=== PATIENT | female | born 1985 | race Caucasian/White ===

== ENCOUNTER → 2022-08-04 | Outpatient (CLI) | payer BC ==
[2022-08-04 17:42] LABS: BASOPHILS % (AUTO) 0 % (0-10); EOSINOPHILS # (AUTO) 0.1 10^3/uL (0.0-0.3); EOSINOPHILS % (AUTO) 2 % (0-10); HEMATOCRIT 31 % (35-52); HEMOGLOBIN 11.2 g/dL (11.5-16.0); LYMPHOCYTES % (AUTO) 26 % (12-44); MEAN CORPUSCULAR HEMOGLOBIN 34 pg (25-34); MEAN CORPUSCULAR HGB CONC 37 g/dL (32-36); MEAN CORPUSCULAR VOLUME 91 fL (80-99); MEAN PLATELET VOLUME 8.4 fL (9.0-12.2); MONOCYTES # (AUTO) 0.4 10^3/uL (0.0-1.0); MONOCYTES % (AUTO) 5 % (0-12); NEUTROPHILS # (AUTO) 5.3 10^3/uL (1.8-7.8); NEUTROPHILS % (AUTO) 67 % (42-75); PLATELET COUNT 309 10^3/uL (130-400); WHITE BLOOD COUNT 7.9 10^3/uL (4.3-11.0)
[2022-08-04 17:53] LABS: ALBUMIN 3.8 GM/DL (3.2-4.5)
[2022-08-04 17:54] LABS: CALCIUM 7.7 MG/DL (8.5-10.1)
[2022-08-04 17:56] LABS: TOTAL PROTEIN 6.2 GM/DL (6.4-8.2)
[2022-08-04 17:57] LABS: BILIRUBIN,TOTAL 0.8 MG/DL (0.1-1.0)
[2022-08-04 17:58] LABS: INR 0.9 (0.8-1.4)
[2022-08-04 17:59] LABS: CREATININE SERUM 0.71 MG/DL (0.60-1.30)
[2022-08-04 18:16] LABS: POTASSIUM 1.8 MMOL/L (3.6-5.0)
== END ==
LOC: LAB 17:27
PROVIDERS: ATTEND Nurse Practitioner Family
DX: I10 Essential (primary) hypertension (principal); E87.6 Hypokalemia
CPT/HCPCS: 36415; 80053; 85025; 85610

== ENCOUNTER → 2022-08-06 | Outpatient (CLI) | payer BC ==
[2022-08-06 15:46] LABS: BILIRUBIN,TOTAL 0.6 MG/DL (0.1-1.0); CALCIUM 7.4 MG/DL (8.5-10.1); CREATININE SERUM 0.69 MG/DL (0.60-1.30); POTASSIUM 2.1 MMOL/L (3.6-5.0); TOTAL PROTEIN 6.4 GM/DL (6.4-8.2)
[2022-08-06 15:47] LABS: ALBUMIN 3.9 GM/DL (3.2-4.5)
[2022-08-08 12:59] LABS: HEPATITIS C ANTIBODY C Non-Reactive (Non-Reactive)
== END ==
LOC: LAB FS 14:56
PROVIDERS: ATTEND Pediatrics
DX: E87.6 Hypokalemia (principal); R74.8 Abnormal levels of other serum enzymes
CPT/HCPCS: 36415; 80053; 80074

== ENCOUNTER → 2022-08-08 | Outpatient (CLI) | payer BC ==
[2022-08-08 13:11] LABS: ALBUMIN 4.1 GM/DL (3.2-4.5); BILIRUBIN,TOTAL 0.5 MG/DL (0.1-1.0); CALCIUM 7.8 MG/DL (8.5-10.1); CREATININE SERUM 0.79 MG/DL (0.60-1.30); TOTAL PROTEIN 6.5 GM/DL (6.4-8.2)
[2022-08-08 13:12] LABS: POTASSIUM 2.7 MMOL/L (3.6-5.0)
== END ==
LOC: LAB FS 12:27
PROVIDERS: ATTEND Pediatrics
DX: E87.6 Hypokalemia (principal)
CPT/HCPCS: 36415; 80053

== ENCOUNTER → 2023-02-11 | Outpatient (CLI) | payer BC | LOC: CARD 12:56 | PROVIDERS: ATTEND Internal Medicine Cardiovascular Disease | DX: I11.9 Hypertensive heart disease without heart failure (principal); I25.10 Atherosclerotic heart disease of native coronary artery without angina pectoris | CPT/HCPCS: 93306 ==

== ENCOUNTER → 2023-02-25 | Outpatient (CLI) | payer BC ==
[2023-02-25 14:57] VITALS: BP 135/94
--- NOTE | 2023-02-25 15:53 | Cardiology Stress Test Report ---
Stress Test Report Date of Procedure/Referring: Date of Procedure: Feb 25, 2023 PCP Octavia Richard MD Admitting Physician Admitting Physician: Attending Physician: Alia Horta MD Baseline Heart Rate: 96 Baseline Blood Pressure: Blood Pressure Systolic: 135 Blood Pressure Diastolic: 94 Baseline EKG: Baseline EKG: NSR Summary/Conclusion: Summary: In summary, the patient started exercising with a baseline heart rate, blood pressure and EKG mentioned above Patient was able to exercise for a total of 9 minutes on Sami protocol, METs 10.5 Maximum heart rate 166 Maximum blood pressure 183/92 Stress EKG, Minimal nondiagnostic changes Recovery EKG , Return to baseline Conclusion: 1. Good exercise tolerance for a total of 9 minutes on Sami protocol, 10.5 METs, achieving 90 percent of maximum expected heart rate 2. Minimal nondiagnostic EKG changes with exercise returned to baseline during recovery 3. No arrhythmia was noted Copy Copies To 1: OCTAVIA RICHARD MD, BASHAR J MD Feb 25, 2023 15:53
== END ==
LOC: CARD 14:41
PROVIDERS: ATTEND Internal Medicine Cardiovascular Disease
DX: R07.9 Chest pain, unspecified (principal); R00.2 Palpitations
CPT/HCPCS: 93017

== ENCOUNTER → 2023-03-27 | Outpatient (CLI) | payer BC ==
--- NOTE | 2023-03-27 15:22 | Diagnostic Imaging Report ---
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 Complete renal ultrasound was performed. In addition, limited abdominal Doppler was performed to evaluate for renal artery stenosis. The left kidney is congenitally absent. Right kidney measures 12.5 x 5.7 x 5.4 cm. A renal artery to aorta ratios are normal throughout the right proximal, mid and distal renal arteries. No velocity elevation is seen. There is no renal artery stenosis. Cortical thickness and echogenicity is normal. No calculi or hydronephrosis is identified. Duplex waveforms appear to be normal. IMPRESSION: Congenitally absent left kidney. The right kidney is unremarkable. Dictated by: Dictated on workstation # [id number]
== END ==
LOC: RAD 09:22
PROVIDERS: ATTEND Internal Medicine Nephrology
DX: Q60.0 Renal agenesis, unilateral (principal); I10 Essential (primary) hypertension; E87.6 Hypokalemia; E21.3 Hyperparathyroidism, unspecified
CPT/HCPCS: 76770; 93975